=== PATIENT | female | born 1945 ===

== ENCOUNTER 2019-12-04 10:14 | Outpatient (CLI) | payer OTHER | END 2019-12-04 10:23 | disposition home or self-care (01) | LOC: MAMO-SONO 10:14 | PROVIDERS: ATTEND Obstetrics & Gynecology Obstetrics | DX: Z12.31 Encounter for screening mammogram for malignant neoplasm of breast (principal); N60.11 Diffuse cystic mastopathy of right breast; N60.12 Diffuse cystic mastopathy of left breast; N64.4 Mastodynia ==